=== PATIENT | female | born 1955 | race African-American/Black ===

== ENCOUNTER 2020-09-05 12:26 | Emergency (ER) | payer MEDICARE ==
[~2020-09-05] VITALS: Ht 165.1 cm; Wt 54.4 kg
--- NOTE | 2020-09-05 12:30 | Emergency Department Note ---
History of Present Illnes History of Present Illness Chief Complaint: Hypertension History of Present Illness This is a 64 year old female with PMH of ESRD and Peritoneal Dialysis presents to the ED for weakness and "high blood pressure " . Denies CP HENSON n/v or SOB. States that she has just moved from [place] but has yet to establish a relationship with a lead tinner or PCP . Historian: Patient Arrival Mode: Car Onset (how long ago): day(s) Severity: moderate Onset quality: gradual Duration (how long): week(s) Timing of current episode: intermittent Progression: waxing and waning Chronicity: new Context: Denies recent illness, Denies recent surgery, Denies recent immobilization, Denies recent travel, Denies trauma/injury, Denies new medications, Denies hx of DVT/PE, Denies non-compliance w/ medications, Denies other Relieving factors: none Exacerbating factors: none Associated symptoms: Reports weakness Treatments prior to arrival: none Past Medical/Family History Physician Review I have reviewed the patient's past medical and family history. Any updates have been documented here. Past Medical History Recent Fever: No Clinical Suspicion of Infectio: No New/Unexplained Change in Ment: No Past Medical History: Hypertension Past Surgical History: None Social History Smoking Cessation: Never Smoker Alcohol Use: None Any Illegal Drug Use: No Review of Systems Review of Systems Constitutional: Reports weakness EENTM: Reports no symptoms Cardiovascular: Reports no symptoms Respiratory: Reports no symptoms Gastrointestinal: Reports no symptoms Genitourinary: Reports no symptoms Musculoskeletal: Reports no symptoms Integumentary: Reports no symptoms Neurological: Reports no symptoms Psychological: Reports no symptoms Endocrine: Reports no symptoms Hematological/Lymphatic: Reports no symptoms Physical Exam Related Data Allergies: Coded Allergies: No Known Allergies (Unverified , 09/05/20) Vital signs reviewed: Yes Physical Exam CONSTITUTIONAL Constitutional: Present well-developed, Present well-nourished HENT HENT: Present normocephalic, Present atraumatic, Present oropharynx clear/moist, Present nose normal HENT L/R: Present left ext ear normal, Present right ext ear normal EYES Eyes: Reports PERRL, Reports conjunctivae normal NECK Neck: Present ROM normal PULMONARY Pulmonary: Present effort normal, Present breath sounds normal CARDIOVASCULAR Cardiovascular: Present regular rhythm, Present heart sounds normal, Present capillary refill normal, Present normal rate GASTROINTESTINAL Abdominal: Present soft, Present nontender, Present bowel sounds normal GENITOURINARY Genitourinary: Present exam deferred SKIN Skin: Present warm, Present dry MUSCULOSKELETAL Musculoskeletal: Present ROM normal NEUROLOGICAL Neurological: Present alert, Present oriented x 3, Present no gross motor or sensory deficits PSYCHOLOGICAL Psychological: Present mood/affect normal, Present judgement normal Results Laboratory Lab results reviewed: Yes Imaging Imaging results reviewed: Yes Impressions [place] [address] Patient Name: CRUZ HARRY MR #: [id number] : 1955 Age/Sex: 64/F Req #: [id number] Adm Physician: Ordered by: KATARZYNA SPARKS DO Report #: [id number] Location: ER Room/Bed: Procedure: [id number] DX/CHEST SINGLE (PORTABLE) Exam Date: Exam Time: REPORT STATUS: Signed TECHNIQUE: Frontal view of the chest. INDICATION: ^ERMD ORDER ^Y. COMPARISON: None. FINDINGS: LINES/TUBES: None. LUNGS: Increased interstitial markings of the lungs. PLEURA: No pneumothorax or significant pleural effusion. HEART AND MEDIASTINUM: The cardiomediastinal silhouette is prominent but this is likely projectional. Slight prominence of the right pulmonary vasculature is likely due to patient rotation. SOFT TISSUES AND BONES: Unremarkable. IMPRESSION: The cardiac silhouette is prominent, and there are increased interstitial markings of the lungs. Overall, this is concerning for volume overload/interstitial pulmonary edema. Pneumonitis is in the differential but considered less likely. Signed by: Bry Foote JR, MD on 09/05/2020 2:06 PM Dictated By: BRY FOOTE MD 05 Transcribed By: CAMELIA on 12/04/20 1406 COPY TO: KATARZYNA SPARKS DO~ [place] [address] Patient Name: CRUZ HARRY MR #: [id number] : 1955 Age/Sex: 64/F Req #: [id number] Adm Physician: Ordered by: KATARZYNA SPARKS DO Report #: [id number] Location: ER Room/Bed: Procedure: [id number] CT/CT BRAIN WO Exam Date: Exam Time: REPORT STATUS: Signed Examination: CT head without contrast Clinical Indication: Weakness. Technique: Transaxial noncontrast images from the skull base through the vertex were obtained. Sagittal and coronal reformatted images were done. Dose modulation, iterative reconstruction, and/or weight based adjustment of the mA/kV was utilized to reduce the radiation dose to as low as reasonably achievable. Comparison: None. Findings: Scalp: No abnormalities. Bones: Intact. No fractures. No blastic or lytic lesions. Brain sulci: Mild volume loss for patient's age. Ventricles: No hydrocephalus. . Extra-axial space: No abnormalities. Parenchyma: There are subtle areas of low-attenuation within subcortical and periventricular white matter, nonspecific, but could represent microvascular ischemic disease. No masses, hemorrhage, or acute or chronic cortical based vascular insults. Suprasellar region: No abnormalities. Craniocervical junction: The foramen magnum is patent. No Chiari one malformation. Impression: 1. No acute intracranial finding. 2. Mild chronic microvascular ischemic change and volume loss. Signed by: Dr. Shawna Galdamez M.D. on 09/05/2020 2:10 PM Dictated By: SHAWNA SILVEIRA MD 1410 Transcribed By: CAMELIA on 09/05/201409 COPY TO: KATARZYNA SPARKS DO~ Procedures 12 Lead ECG Interpretation ECG Interpretation : ECG: ECG 1 [employer] [employer]: Interpreted by ED physician Date: Sep 05, 2020 Time: 13:08 Prior ECG tracings: reviewed Rhythm: sinus rhythm Rate: normal BPM: 68 QRS axis: normal ST segments normal: Yes T waves normal: Yes Other findings: LVH Clinical Impression: non-specific ECG Assessment & Plan Medical Decision Making MDM Diff Dx : ACS, hypertensive encephalopathy, SAH, intracranial brain pathology, CHF, hyperkalemia Assessment & Plan Final Impression: (1) Weakness (2) End stage chronic kidney disease (3) Elevated brain natriuretic peptide (BNP) level Depart Disposition: HOME, SELF-CARE KATARZYNA SPARKS DO Sep 05, 2020 12:30
[2020-09-05 13:17] LABS: BASOPHILS % 0.4 % (0.0-1.0); EOSINOPHILS # (AUTO) 0.3 (0.0-0.4); EOSINOPHILS % 5.4 % (0.0-6.0); HEMATOCRIT 27.5 % (34.2-44.1); LYMPHOCYTES % 17.2 % (18.0-39.1); MEAN CORPUSCULAR HEMOGLOBIN 27.4 pg (28-32); MEAN CORPUSCULAR HGB CONC 32.7 g/dL (31-35); MEAN CORPUSCULAR VOLUME 83.6 fL (81-99); MONOCYTES # (AUTO) 0.4 (0.2-0.8); NEUTROPHILS % 69.6 % (38.7-80.0); PLATELET COUNT 145 x10e3/uL (140-360); RED BLOOD COUNT 3.29 x10e6/uL (3.6-5.1); RED CELL DISTRIBUTION WIDTH 16.6 % (11.7-14.4)
--- NOTE | 2020-09-05 13:24 | NUR ---
pt unable to void at this time. notified.
[2020-09-05 13:53] LABS: ALBUMIN 3.2 g/dL (3.5-5.0); CALCIUM 8.9 mg/dL (8.4-10.2); CREATININE, SERUM 10.47 mg/dL (0.57-1.11)
[2020-09-05 14:01] LABS: CREATINE KINASE MB 2.4 ng/mL (0-5.0)
--- NOTE | 2020-09-05 14:09 | Diagnostic Imaging Report ---
TECHNIQUE: Frontal view of the chest. INDICATION: ^ERMD ORDER ^Y. COMPARISON: None. FINDINGS: LINES/TUBES: None. LUNGS: Increased interstitial markings of the lungs. PLEURA: No pneumothorax or significant pleural effusion. HEART AND MEDIASTINUM: The cardiomediastinal silhouette is prominent but this is likely projectional. Slight prominence of the right pulmonary vasculature is likely due to patient rotation. SOFT TISSUES AND BONES: Unremarkable. IMPRESSION: The cardiac silhouette is prominent, and there are increased interstitial markings of the lungs. Overall, this is concerning for volume overload/interstitial pulmonary edema. Pneumonitis is in the differential but considered less likely. Signed by: Bry Foote JR, MD on 09/05/2020 2:06 PM
--- NOTE | 2020-09-05 14:13 | Diagnostic Imaging Report ---
Examination: CT head without contrast Clinical Indication: Weakness. Technique: Transaxial noncontrast images from the skull base through the vertex were obtained. Sagittal and coronal reformatted images were done. Dose modulation, iterative reconstruction, and/or weight based adjustment of the mA/kV was utilized to reduce the radiation dose to as low as reasonably achievable. Comparison: None. Findings: Scalp: No abnormalities. Bones: Intact. No fractures. No blastic or lytic lesions. Brain sulci: Mild volume loss for patient's age. Ventricles: No hydrocephalus. . Extra-axial space: No abnormalities. Parenchyma: There are subtle areas of low-attenuation within subcortical and periventricular white matter, nonspecific, but could represent microvascular ischemic disease. No masses, hemorrhage, or acute or chronic cortical based vascular insults. Suprasellar region: No abnormalities. Craniocervical junction: The foramen magnum is patent. No Chiari one malformation. Impression: 1. No acute intracranial finding. 2. Mild chronic microvascular ischemic change and volume loss. Signed by: Dr. Shawna Galdamez M.D. on 09/05/2020 2:10 PM
== END 2020-09-05 14:44 | disposition home or self-care (01) ==
LOC: ER 13:20
DX: R53.1 Weakness (principal); I12.0 Hypertensive chronic kidney disease with stage 5 chronic kidney disease or end stage renal disease; N18.6 End stage renal disease; Z99.2 Dependence on renal dialysis; E78.5 Hyperlipidemia, unspecified
CPT/HCPCS: 36415; 70450; 71045; 80053; 82550; 82553; 83880; 84484; 85025; 93005; 99284

== ENCOUNTER 2020-09-19 14:27 | Emergency (ER) | payer MEDICARE ==
[~2020-09-19] VITALS: Ht 165.1 cm; Wt 54.4 kg
[2020-09-19 15:50] LABS: BASOPHILS % 0.5 % (0.0-1.0); EOSINOPHILS # (AUTO) 0.2 (0.0-0.4); EOSINOPHILS % 3.8 % (0.0-6.0); HEMATOCRIT 30.6 % (34.2-44.1); HEMOGLOBIN 10.1 g/dL (12.0-16.0); LYMPHOCYTES # (AUTO) 0.9 (1.0-3.2); LYMPHOCYTES % 14.2 % (18.0-39.1); MEAN CORPUSCULAR VOLUME 81.8 fL (81-99); MONOCYTES # (AUTO) 0.3 (0.2-0.8); MONOCYTES % 5.4 % (4.4-11.3); NEUTROPHILS # (AUTO) 4.7 (2.1-6.9); NEUTROPHILS % 75.8 % (38.7-80.0); PLATELET COUNT 131 x10e3/uL (140-360); RED BLOOD COUNT 3.74 x10e6/uL (3.6-5.1); RED CELL DISTRIBUTION WIDTH 15.9 % (11.7-14.4)
[2020-09-19 15:53] LABS: INR 0.88; PROTHROMBIN TIME 12.4 seconds (11.9-14.5)
[2020-09-19 15:54] LABS: PARTIAL THROMBOPLASTIN TIME 30.9 seconds (23.8-35.5)
[2020-09-19 16:03] LABS: ALBUMIN 3.3 g/dL (3.5-5.0); ALBUMIN/GLOBULIN RATIO 1.1 (0.8-2.0); ANION GAP 18.9 mmol/L (8-16); CALCIUM 8.9 mg/dL (8.4-10.2); POTASSIUM 3.9 mmol/L (3.5-5.1)
[2020-09-19 16:09] LABS: CREATINE KINASE MB 3.2 ng/mL (0-5.0)
[2020-09-19] MEDS ORDERED: HYDRALAZINE HCL 20 MG/ML VIAL IV STA ×2 (16:51→18:16)
[2020-09-19] MEDS ORDERED: HYDROCODONE/APAP 7.5MG-325MG 1 EA TAB PO STA (16:51)
== END 2020-09-19 18:42 | disposition home or self-care (01) ==
LOC: ER 14:33
DX: R51.9 Headache, unspecified (principal); I12.0 Hypertensive chronic kidney disease with stage 5 chronic kidney disease or end stage renal disease; N18.6 End stage renal disease; Z99.2 Dependence on renal dialysis; E78.5 Hyperlipidemia, unspecified; R94.31 Abnormal electrocardiogram [ECG] [EKG]
CPT/HCPCS: 36415; 70450; 80053; 82550; 82553; 84484; 85025; 85610; 85730; 93005; 99284; J0360